=== PATIENT | female | born 1935 | race Caucasian/White ===

== ENCOUNTER 2021-12-08 11:31 | Outpatient (CLI) | payer MEDICARE ==
[2021-12-08 18:07] LABS: BASOPHILS # (AUTO) 0.1 10^3/uL (0.0-0.1); BASOPHILS % (AUTO) 0.8 %; EOSINOPHILS # (AUTO) 0.1 10^3/uL (0.0-0.7); EOSINOPHILS % (AUTO) 0.9 %; HCT - HEMATOCRIT 40.5 % (37.0-47.0); HGB - HEMOGLOBIN 13.2 g/dL (12.0-16.0); LYMPHOCYTES # (AUTO) 3.8 10^3/uL (1.5-3.5); LYMPHOCYTES % (AUTO) 38.6 %; MEAN CORPUSCULAR HEMOGLOBIN 32.5 pg (27.0-31.0); MEAN CORPUSCULAR HGB CONC 32.6 g/dL (32.0-36.0); MEAN CORPUSCULAR VOLUME 99.8 fL (81.0-99.0); MEAN PLATELET VOLUME 10.2 fL (7.9-10.8); MONOCYTES # (AUTO) 0.7 10^3/uL (0.0-1.0); MONOCYTES % (AUTO) 7.1 %; NEUTROPHILS # (AUTO) 5.1 10^3/uL (1.5-6.6); NEUTROPHILS % (AUTO) 52.3 %; PLT - PLATELET COUNT 316 10^3/uL (130-450); RED BLOOD COUNT 4.06 10^6/uL (4.20-5.40); RED CELL DISTRIBUTION WIDTH 13.6 % (12.0-15.0); WHITE BLOOD COUNT 9.8 x10^3/uL (4.8-10.8)
[2021-12-08 18:27] LABS: ALBUMIN 4.2 g/dL (3.2-5.5); ALBUMIN/GLOBULIN RATIO 1.3 (1.0-2.2); ALKALINE PHOSPHATASE 46 IU/L (42-121); ALT ALANINE AMINOTRANSFERASE 13 IU/L (10-60); AST ASPARTATE AMINOTRANSFERASE 18 IU/L (10-42); BILIRUBIN,TOTAL 0.6 mg/dL (0.2-1.0); BUN - BLOOD UREA NITROGEN 28 mg/dL (6-20); CALCIUM 9.9 mg/dL (8.5-10.3); CARBON DIOXIDE - CO2 29 mmol/L (21-32); CHLORIDE 99 mmol/L (101-111); CHOL/HDL RATIO 2.3 (<4.4); CHOLESTEROL 194 mg/dL; CREATININE 0.9 mg/dL (0.4-1.0); GFR - MDRD 59 (>89); GLUCOSE 98 mg/dL (70-100); HDL CHOLESTEROL 85 mg/dL; LDL CHOLESTEROL,CALCULATED 95 mg/dL; LDL/HDL RATIO 1.1 (<4.4); POTASSIUM 4.1 mmol/L (3.5-5.0); SODIUM 136 mmol/L (135-145); TOTAL PROTEIN 7.5 g/dL (6.7-8.2); TRIGLYCERIDES 68 mg/dL; VLDL CHOLESTEROL 14 mg/dL
[2021-12-08 18:34] LABS: THYROID STIMULATING HORMONE 3.28 uIU/mL (0.34-5.60)
[2021-12-08 19:53] LABS: ESTIMATED AVERAGE GLUCOSE 97 mg/dL (70-100)
== END 2021-12-08 11:32 | disposition home or self-care (01) ==
LOC: LAB.N 11:31
PROVIDERS: ATTEND Nurse Practitioner Family
DX: I10 Essential (primary) hypertension (principal); E03.9 Hypothyroidism, unspecified; Z13.220 Encounter for screening for lipoid disorders; Z13.1 Encounter for screening for diabetes mellitus
CPT/HCPCS: 36415; 80053; 80061; 83036; 83721; 84443; 85025

== ENCOUNTER 2021-12-17 14:37 | Outpatient (CLI) | payer MEDICARE | END 2021-12-17 14:38 | disposition critical access hospital (66) | LOC: EMS 14:37 | DX: M79.662 Pain in left lower leg (principal); W01.0XXA Fall on same level from slipping, tripping and stumbling without subsequent striking against object, initial encounter; Y92.009 Unspecified place in unspecified non-institutional (private) residence as the place of occurrence of the external cause | CPT/HCPCS: A0425; A0427 ==

== ENCOUNTER 2021-12-17 14:55 | Emergency (ER) | payer MEDICARE ==
[2021-12-17] MEDS ORDERED: fentaNYL 100 MCG/2 ML VIAL IVP STA (15:32)
--- NOTE | 2021-12-17 15:34 | ED Physician Documentation ---
PD HPI LOWER EXT INJURY - Stated complaint Stated Complaint: GLF - Chief complaint Chief Complaint: Trauma Ext - History obtained from History obtained from: Patient - Additional information Additional information: Patient is an 86-year-old female presenting for evaluation of left leg pain. Patient was in the kitchen and got her slippers caught under a rug and fell down. She denies hitting her head or loss of consciousness. She reports pain to the left lower leg. She was given 100 mcg of fentanyl from EMS with some improvement.Pain is sharp and worse with movements. It is better at rest. She does not take a blood thinner.She denies feeling dizzy, lightheaded or having any symptoms prior to the fall. Review of Systems Constitutional: denies: Fever Nose: denies: Congestion Cardiac: denies: Chest pain / pressure Respiratory: denies: Dyspnea GI: denies: Abdominal Pain : denies: Dysuria Musculoskeletal: reports: Extremity pain Neurologic: denies: Headache, Head injury PD PAST MEDICAL HISTORY - Allergies Allergies/Adverse Reactions: Allergies Allergy/AdvReac Type Severity Reaction Status Date / Time Penicillins AdvReac Itching Verified 12/17/21 15:19 PD ED PE NORMAL - General General: Alert and oriented X 3, No acute distress, Well developed/nourished - HEENT HEENT: Atraumatic, PERRL, EOMI, Moist mucous membranes, Pharynx benign - Neck Neck: Supple, no meningeal sign, No bony TTP, C-Spine cleared by NEXUS criteria - Cardiac Cardiac: RRR, No murmur, Strong equal pulses - Respiratory Respiratory: No respiratory distress, Clear bilaterally - Abdomen Abdomen: Normal bowel sounds, Soft, Non tender, Non distended - Derm Derm: Warm and dry - Extremities Extremities: Other (Left lower extremity tenderness to palpation; Pedal pulses intact, sensation grossly intact, no tenderness more proximally over the femur) - Neuro Neuro: Alert and oriented X 3, special needs nanny 2-12 intact, No motor deficit, No sensory deficit, Normal speech Eye Opening: Spontaneous Motor: Obeys Commands Verbal: Oriented GCS Score: 15 Results - Vitals Vitals: Vital Signs - 24 hr 12/17/21 12/17/21 15:13 17:19 Temperature 36.2 C L Heart Rate 67 73 Respiratory 15 18 Rate Blood Pressure 180/81 H 156/73 H O2 Saturation 96 98 Oxygen O2 Source Room air - Labs Labs: Laboratory Tests 12/17/21 18:50 WBC 13.0 H RBC 4.05 L Hgb 13.4 Hct 39.9 MCV 98.5 MCH 33.1 H MCHC 33.6 RDW 13.6 Plt Count 288 MPV 9.2 Neut # (Auto) 10.4 H Lymph # (Auto) 2.0 [place] # (Auto) 0.5 Eos # (Auto) 0.0 Baso # (Auto) 0.1 Absolute Nucleated RBC 0.00 Nucleated RBC % 0.0 PD MEDICAL DECISION MAKING - ED course Complexity details: reviewed results, re-evaluated patient, d/w patient, d/w family ED course: Patient brought in for evaluation after ground-level fall. Left lower extremity pain. No head injury. Vital signs are stable. X-rays demonstrate distal left fibular fracture. Neurovascularly intact. Patient has significant pain and limitations when trying to ambulate. Patient is not safe for discharge. She will board in the emergency department awaiting social work consult in the morning. Does not require admission as this is not an operative fracture at least emergently.Screening labs ordered and the patient signed out to Dr. Cespedes at shift change. 1840 - Patient with sugar-tong splint. Would not be able to tolerate crutches. Attempted to ambulate with walker but she was not able to take more than 1 or 2 steps before wanting to sit back down. Patient and daughter do not feel comfortable going home tonight as they feel she will fall and have no other assistance at home.Will order screening labs.Patient does not require emergent surgery for this fracture. She will remain in the ER pending social work evaluation in the morning.
--- NOTE | 2021-12-17 16:36 | XRAY Report ---
PROCEDURE: Knee 3 View LT INDICATIONS: fall/pain TECHNIQUE: 3 views of the left knee(s) were acquired. COMPARISON: None. FINDINGS: Bones: No fractures or dislocations. Moderate to severe tricompartmental osteoarthritis is seen. No suspicious bony lesions. Soft tissues: Small to moderate suprapatellar joint effusion. No suspicious soft tissue calcificati ons. IMPRESSION: No gross acute left knee fracture or dislocation. 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 Small to moderate joint effusion. Reviewed by: Ozzy Corrales MD on 12/17/2021 4:35 PM PDT Approved by: Ozzy Corrales MD on 12/17/2021 4:35 PM PDT Station ID: [id number]
--- NOTE | 2021-12-17 16:36 | XRAY Report ---
PROCEDURE: Tib/Fib LT INDICATIONS: fall/pain TECHNIQUE: 3 views of the tibia and fibula were acquired. COMPARISON: None FINDINGS: Bones: There is suggestion of an acute oblique fracture involving distal fibular shaft with minimal d orsal and lateral displacement at fracture site. No other fracture or dislocation is seen. Osteoarthr itic changes are noted in visualized left midfoot and hindfoot joints. Well-defined calcaneal entheso phytes are seen. No suspicious bony lesions. Soft tissues: No suspicious soft tissue calcifications or masses. IMPRESSION: Suggestion of acute minimally displaced oblique fracture through distal fibular shaft. Reviewed by: Ozzy Corrales MD on 12/17/2021 4:35 PM PDT Approved by: Ozzy Corrales MD on 12/17/2021 4:35 PM PDT Station ID: [id number]
[2021-12-17] MEDS ORDERED: oxyCODONE 5 MG TABLET PO STA (16:55)
[2021-12-17 18:57] LABS: BASOPHILS # (AUTO) 0.1 10^3/uL (0.0-0.1); BASOPHILS % (AUTO) 0.5 %; HCT - HEMATOCRIT 39.9 % (37.0-47.0); HGB - HEMOGLOBIN 13.4 g/dL (12.0-16.0); LYMPHOCYTES % (AUTO) 15.4 %; MEAN CORPUSCULAR HEMOGLOBIN 33.1 pg (27.0-31.0); MEAN CORPUSCULAR HGB CONC 33.6 g/dL (32.0-36.0); MEAN CORPUSCULAR VOLUME 98.5 fL (81.0-99.0); MEAN PLATELET VOLUME 9.2 fL (7.9-10.8); MONOCYTES # (AUTO) 0.5 10^3/uL (0.0-1.0); MONOCYTES % (AUTO) 3.8 %; NEUTROPHILS # (AUTO) 10.4 10^3/uL (1.5-6.6); NEUTROPHILS % (AUTO) 79.9 %; PLT - PLATELET COUNT 288 10^3/uL (130-450); RED BLOOD COUNT 4.05 10^6/uL (4.20-5.40); RED CELL DISTRIBUTION WIDTH 13.6 % (12.0-15.0)
[2021-12-17 19:09] LABS: ALBUMIN/GLOBULIN RATIO 1.2 (1.0-2.2); BILIRUBIN,TOTAL 0.8 mg/dL (0.2-1.0); CALCIUM 9.9 mg/dL (8.5-10.3); CREATININE 0.9 mg/dL (0.4-1.0); POTASSIUM 3.6 mmol/L (3.5-5.0); TOTAL PROTEIN 7.3 g/dL (6.7-8.2)
[2021-12-17] MEDS ORDERED: HYDROmorphone 1 MG/ML CARPUJECT IVP STA (19:54)
[2021-12-17] MEDS ORDERED: HYDROcod/ACETAM 5/325 MG TABLET PO STA (22:23)
[2021-12-18] MEDS ORDERED: oxyCODONE 5 MG TABLET PO STA (08:59)
[2021-12-18] MEDS ORDERED: ACETAMINOPHEN 325 MG TABLET PO STA (08:59)
--- NOTE | 2021-12-18 16:09 | ED Physician Documentation ---
ED Addendum - Addendum Addendum: Patient boarding in the emergency department. Seen yesterday after ground-level fall and found to have a distal fibula fracture. Patient was not safe to discharge home as she was not able to ambulate or pivot. Social work has been consulted to see the patient today. pet crematory worker is requesting PT and OT to evaluate the patient. PT and OT evaluated the patient and state that she needs to go to a long-term facility. Social work is continuing to work on placement. Patient signed out to oncoming provider at shift change.
[2021-12-18] MEDS: oxyCODONE 5 MG TABLET PO PRN (23:02)
[2021-12-19] MEDS: oxyCODONE 5 MG TABLET PO PRN ×2 (03:33→16:13)
--- NOTE | 2021-12-19 09:03 | ED Physician Documentation ---
ED Addendum - Addendum Addendum: Pt with GLF, L Distal fibula fracture. Unsafe to go home and is awaiting placement. Social work is working on this. 12/19/21 19:20 Patient signed out to oncoming provider. Patient remains in the emergency department until likely Tuesday for SNF placement. Departure - Departure Clinical Impression: Fall from ground level Closed fracture of left distal fibula Qualifiers: Encounter type: initial encounter Fracture morphology: unspecified fracture morphology Qualified Code(s): S82.832A - Other fracture of upper and lower end of left fibula, initial encounter for closed fracture Condition: Stable Instructions: ED Fx Ankle Lateral Malleolus Follow-Up: Anthony Jiménez MD [Provider Admit Priv/Credential] - Prescriptions: Oxycodone HCl/Acetaminophen [Percocet 5-325 mg Tablet] 1 each PO Q6H PRN #14 tablet PRN Reason: pain Comments: You have a fracture to your left fibula near your ankle. We have applied a splint. The splint should be kept on until you are seen by an orthopedic surgeon. Please keep it clean and dry. Ideally you should not put weight on this leg but if you are unsteady on crutches, You can put some weight on the extremity as tolerated.Please call the orthopedic surgeon listed on the paperwork on Tuesday for close outpatient follow-up. I have also sent a prescription to the [id number] For narcotic pain medication. I am prescribing a short course of narcotic pain medication for you. These are potentially dangerous and addictive medications that should be used carefully. These medications may constipate you. Take an atje-lvt-fugdojm stool softener (docusate) twice daily with plenty of water while taking these medications. If you go 24 hours without a bowel movement, take hjfy-xbt-ehknalo miralax, per package instructions. Do not drink or drive while taking these medications. If you received narcotic or sedating medications while in the emergency department, do not drive for 24 hours. Store this medication in a safe, secure place and out of reach of children. It is a violation of federal law to give or sell this medication to another person or to use in a manner other than prescribed. The ED will not refill narcotic prescriptions, including prescriptions lost or stolen. To dispose of unwanted medications: 1. [facility] at [address] in [place] has a medication drop box. They accept prescription medications (in pill form) Tuesday through Tuesday 9:00 a.m. to 5:00 p.m. 2. The [facility] [employer] accepts prescription medications (in pill form only) for disposal year round. Call for more information. 3. Contact the [facility] for the next [facility] sponsored prescription drug collection event. , [phone], or [phone]; Note that many narcotic pain relievers also contain Tylenol/acetaminophen. Please ensure that your total dose of acetaminophen from all sources does not exceed 3 g (3000 mg) per day.
[2021-12-19] MEDS: ACETAMINOPHEN 325 MG TABLET PO PRN (21:59)
[2021-12-20] MEDS: oxyCODONE 5 MG TABLET PO PRN ×3 (01:05→17:47)
[2021-12-20] MEDS: amLODIPine 5 MG TABLET PO SCH (08:35)
[2021-12-20] MEDS: FAMOTIDINE 20 MG TABLET PO SCH ×2 (08:35→21:00)
--- NOTE | 2021-12-20 12:43 | ED Physician Documentation ---
ED Addendum - Addendum Addendum: 12/20/21 12:41 Subjective: The patient is comfortable lying in bed at this time. She states she had some discomfort of her leg last night but being repositioned in the bed and on a more comfortable bed was helpful. Otherwise is feeling well. She had some breakfast and lunch without problems. Objective: She is awake alert and conversant. No apparent distress. Breathing comfortably. Her left ankle has a stirrup fiberglass splint in place. She has good sensation movement color and capillary refill in the toes. She states her ankle is not hurting at this time. Assessment: Distal fibular fracture and difficult ambulation mobility Plan: The patient's been assessed for rehab and presumably will go to a facility tomorrow and has been accepted there. They were unable to take her over the weekend.
[2021-12-20] MEDS: ACETAMINOPHEN 325 MG TABLET PO PRN (14:30)
[2021-12-21] MEDS: FAMOTIDINE 20 MG TABLET PO SCH (10:06)
[2021-12-21] MEDS: amLODIPine 5 MG TABLET PO SCH (10:06)
[2021-12-21 11:33] VITALS: BP 128/67
--- NOTE | 2021-12-21 12:56 | ED Physician Documentation ---
ED Addendum - Addendum Addendum: 12/21/21 12:55 The patient is being transferred to [facility] for rehab and care of her ankle fracture. She is physically unable to mobilize with crutches etc. She is feeling well this morning. Social work had set up paperwork through her primary care and the facility is excepting her. Disposition: The patient is discharged from the emergency department in stable condition to group home facility Diagnoses: 1 ankle fracture acute 2. Inability to manipulate with crutches
[2021-12-21] MEDS: oxyCODONE 5 MG TABLET PO PRN (13:27)
[2021-12-21] MEDS: ACETAMINOPHEN 325 MG TABLET PO PRN (13:28)
== END 2021-12-21 13:45 | disposition home or self-care (01) ==
LOC: EDUNIT# → ED 14:55
DX: S82.832A Other fracture of upper and lower end of left fibula, initial encounter for closed fracture (principal); W01.0XXA Fall on same level from slipping, tripping and stumbling without subsequent striking against object, initial encounter; Y92.000 Kitchen of unspecified non-institutional (private) residence as the place of occurrence of the external cause; Z20.822 Contact with and (suspected) exposure to COVID-19
CPT/HCPCS: 29505; 36415; 73562; 73590; 80053; 85025; 87635; 96374; 96375; 99284; A9270; J1170

== ENCOUNTER 2021-12-21 13:35 | Outpatient (CLI) | payer MEDICARE | END 2021-12-21 13:36 | LOC: EMS 13:35 | PROVIDERS: ATTEND Emergency Medicine | DX: S82.832A Other fracture of upper and lower end of left fibula, initial encounter for closed fracture (principal); W18.30XA Fall on same level, unspecified, initial encounter | CPT/HCPCS: A0425; A0428 ==